=== PATIENT | male | born 1950 | race Caucasian/White ===

== ENCOUNTER 2019-09-24 07:02 | Outpatient (CLI) | payer BC, SELFPAY ==
--- NOTE | 2019-09-24 07:06 | USCV_ITS ---
Td Escoto Age: 69 Gender: M : 1950 Exam Date: 09/24/2019 07:18 Ordering Phys: Td Escoto MD Technologist: Ciara Henson Exam Location: [facility] [place] Indication: Aortic diastolic murmur BP: 119 / 74 HR: 62 Rhythm: Sinus Technical Quality: Technically difficult study MEASUREMENTS (Male / Female) Normal Values 2D ECHO LV Diastolic Diameter PLAX 4.5 cm 4.2 - 5.9 / 3.9 - 5.3 cm LV Systolic Diameter PLAX 3.6 cm LV Chamber Size 4.0 cm IVS Diastolic Thickness 1.5 cm 0.6 - 1.0 / 0.6 - 0.9 cm IVS Systolic Thickness 2.1 cm LVPW Diastolic Thickness 1.1 cm 0.6 - 1.0 / 0.6 - 0.9 cm LVPW Systolic Thickness 1.7 cm RV Chamber Size 2.0 cm LVOT Diameter 2.0 cm LV Ejection Fraction 2D Teich 41.1 % LV Ejection Fraction MOD 2C 50.3 % LV Ejection Fraction 2C AL 51.9 % LA Diameter 4.9 cm LA Width 3.3 cm LA Height 6.2 cm RA Width 2.4 cm RA Height 5.8 cm Aorta at Sinotubular Diameter 2.5 cm M-MODE LV Diastolic Diameter MM 5.8 cm 4.2 - 5.9 / 3.9 - 5.3 cm LV Systolic Diameter MM 4.3 cm LV Ejection Fraction MM Teich 48.0 % IVS Diastolic Thickness MM 1.0 cm 0.6 - 1.0 / 0.6 - 0.9 cm IVS Systolic Thickness MM 1.3 cm LVPW Diastolic Thickness MM 1.3 cm 0.6 - 1.0 / 0.6 - 0.9 cm LVPW Systolic Thickness MM 1.8 cm RV Diastolic Diameter MM 1.4 cm Aortic Annulus Diameter 3.3 cm LA Ao Ratio MM 1.5 MV E Point Septal Separation 0.3 cm DOPPLER AV Peak Velocity 269.0 cm/s LVOT Peak Velocity 258.0 cm/s AV Area Cont Eq vti 2.9 cm squared AV Area Cont Eq pk 3.0 cm squared MV Area PHT 4.3 cm squared Mitral E to A Ratio 1.7 MV E' Velocity 8.0 cm/s Mitral E to MV E' Ratio 13.5 Mitral E to LV E' Lateral Ratio 13.1 Mitral E to LV E' Septal Ratio 14.0 TR Peak Velocity 239.0 cm/s TR Peak Gradient 22.9 mmHg TV Peak E Velocity 38.0 cm/s Right Atrial Pressure 3.0 mmHg Pulmonary Artery Systolic Pressu 25.8 mmHg PV Peak Velocity 92.0 cm/s RV Acceleration Time 0.1 s RV Ejection Time 0.3 s RV AcT/ET 0.2 FINDINGS Left Ventricle Normal left ventricular cavity size. Normal left ventricular systolic function. Left ventricular ejection fraction is estimated at 55 %. There is moderate hypokinesis of basal to mid inferior montoya. Abnormal septal motion. Grade II diastolic dysfunction, moderately elevated filling pressures. Right Ventricle Normal right ventricular size and systolic function. Right ventricular systolic pressure 25.8 mmHg. Right Atrium Normal right atrial size. Right atrial pressure estimated at 3 mmHg. Left Atrium Mildly increased left atrial size. Mitral Valve Mild mitral annular calcification. Mildly thickened mitral valve. No mitral valve stenosis. Trace mitral valve regurgitation. Aortic Valve Moderate thickening and calcification of trileaflet aortic valve. Moderate aortic valve stenosis, peak velocity 2.7 m/s, peak gradient, 29 mmHg, mean gradient 15 mmHg, YUMIKO 1.2 cm squared. Trace aortic valve regurgitation. Tricuspid Valve Tricuspid valve not well visualized. Trace tricuspid valve regurgitation. Pulmonic Valve Pulmonic valve not well visualized. No pulmonary valve stenosis. Trace pulmonary valve regurgitation. Pericardium No pericardial effusion. Aorta Normal-sized aortic root. CONCLUSIONS 1. This is a technically difficult study. 2. Normal left ventricular cavity size. Normal left ventricular systolic function. Left ventricular ejection fraction is estimated at 55 %. There is moderate hypokinesis of basal to mid inferior montoya. Abnormal septal motion. 3. Normal right ventricular size and systolic function. 4. Moderate aortic valve stenosis, peak velocity 2.7 m/s, peak gradient, 29 mmHg, mean gradient 15 mmHg, YUMIKO 1.2 cm squared. 5. When compared to previous echocardiogram dated 10/30/2013, there is aortic valve stenosis now. Luly Howard MD (Electronically Signed) Final Date: 28 September 2019 11:12 S
== END 2019-09-24 07:03 | disposition home or self-care (01) ==
LOC: US 07:03
PROVIDERS: Family Provider Family Medicine; Visit Provider Family Medicine
DX: I07.1 Rheumatic tricuspid insufficiency (principal); I37.1 Nonrheumatic pulmonary valve insufficiency; I35.2 Nonrheumatic aortic (valve) stenosis with insufficiency
CPT/HCPCS: 93306

== ENCOUNTER 2021-02-02 10:06 | Outpatient (CLI) | payer MEDICARE, SELFPAY ==
--- NOTE | 2021-02-02 10:22 | XR_ITS ---
WS: [id number] PA and lateral chest, 02/02/2021 Clinical Data: SHORTNESS OF BREATH Comparison: PA and lateral chest, 12/13/2017. Findings: No nodules, masses or effusions are seen. The heart is normal. No pneumonia or pneumothorax is seen. The pulmonary vascularity is not increased. The aortic arch and descending aorta aorta show calcification and minimal tortuosity. Midline sternotomy sutures are present. XR/XR chest 2V* [id number] Impression: Atherosclerosis.
== END 2021-02-02 10:07 | disposition home or self-care (01) ==
PROVIDERS: PCP Family Medicine; Visit Provider Family Medicine
DX: R06.02 Shortness of breath (principal); I70.90 Unspecified atherosclerosis
CPT/HCPCS: 71046

== ENCOUNTER → 2023-12-13 11:40 | Outpatient (BNVA) | payer MEDICARE, SELFPAY | PROVIDERS: PCP Family Medicine; Referring Provider Family Medicine; Visit Provider Internal Medicine | DX: E11.9 Type 2 diabetes mellitus without complications (principal); E78.2 Mixed hyperlipidemia; Z79.4 Long term (current) use of insulin | CPT/HCPCS: 80053; 80061; 82044; 83036; 99204 ==

== ENCOUNTER → 2024-03-18 10:54 | Outpatient (BNVA) | payer MEDICARE, SELFPAY | PROVIDERS: PCP Family Medicine; Visit Provider Internal Medicine | DX: E11.9 Type 2 diabetes mellitus without complications (principal); E78.2 Mixed hyperlipidemia; Z79.85 Long-term (current) use of injectable non-insulin antidiabetic drugs | CPT/HCPCS: 99214 ==

== ENCOUNTER 2024-06-15 11:06 | Outpatient (CLI) | payer MEDICARE, SELFPAY ==
[2024-06-15 12:25] LABS: Creatinine Urine, Random 327 mg/dL (39-259); Microalbum Creatinine Ratio Ur 31 mg/dL (0-20); Microalbumin Random Urine 10 ug/dL (0-20)
[2024-06-15 12:32] LABS: Estmated Average Glucose 114; Hemoglobin A1C 5.6 % (4.0-6.0)
[2024-06-15 12:33] LABS: Alanine Aminotransferase 14 U/L (0-41); Albumin Level 3.8 g/dL (3.5-5.2); Alkaline Phosphatase 53 U/L (40-130); Anion Gap 9.7 (5-19); Aspartate Amino Transferase 18 U/L (0-40); Blood Urea Nitrogen 13 mg/dL (8-23); Calcium 9.4 mg/dL (8.5-10.5); Carbon Dioxide 31 mmol/L (22-29); Chloride 99 mmol/L (98-107); Cholesterol 120 mg/dL (0-200); Glucose 103 mg/dL (65-115); HDL Cholesterol 40 mg/dL (60-100); LDL Cholesterol Calculated 60 mg/dL (50-129); Osmolality Calculated 280 mOsm/kg (285-295); Potassium 4.7 mmol/L (3.5-5.1); Sodium 135 mmol/L (136-145); Total Bilirubin 0.5 mg/dL (0.15-1.2); Total Protein 6.8 g/dL (6.6-8.7); Triglycerides 99 mg/dL (0-150)
== END 2024-06-15 11:07 | disposition home or self-care (01) ==
LOC: LAB 11:08
PROVIDERS: PCP Family Medicine; Visit Provider Internal Medicine
DX: E11.9 Type 2 diabetes mellitus without complications (principal); E78.2 Mixed hyperlipidemia
CPT/HCPCS: 36415; 80053; 80061; 82044; 83036

== ENCOUNTER → 2024-06-18 10:55 | Outpatient (BNVA) | payer MEDICARE, SELFPAY | PROVIDERS: PCP Family Medicine; Visit Provider Internal Medicine | DX: E11.9 Type 2 diabetes mellitus without complications (principal); E78.2 Mixed hyperlipidemia | CPT/HCPCS: 99214 ==

== ENCOUNTER 2024-12-16 20:00 | Outpatient (CLI) | payer MEDICARE, SELFPAY | END 2024-12-16 20:01 | disposition home or self-care (01) | LOC: SLEEP 12-17 04:02 | PROVIDERS: PCP Family Medicine; Referring Provider Family Medicine; Visit Provider Internal Medicine Pulmonary Disease | DX: G47.33 Obstructive sleep apnea (adult) (pediatric) (principal) | CPT/HCPCS: 95811 ==